=== PATIENT | female | born 1985 | race Caucasian/White ===

== ENCOUNTER 2020-04-14 16:55 | Outpatient (REF) | payer OTHER, SELFPAY ==
[2020-04-14 17:47] LABS: Basophils Percent Auto 0.3 % (0-2); Eosinophils Absolute Auto 0.2 X10*3/uL (0.0-0.4); Eosinophils Percent Auto 1.8 % (0-4); Hematocrit 40.9 % (37-47); Hemoglobin 13.3 g/dl (12.0-16.0); Imm Gran Abs Auto 0.05 X10*3/uL (0.00-0.03); Imm Gran Pct Auto 0.6 % (0.0-0.4); Lymphocytes Absolute Auto 1.9 X10*3/uL (1.2-4.9); Lymphocytes Percent Auto 20.8 % (20-40); MANUAL DIFF FLAG NO; Mean Corpuscular HGB Conc 32.5 g/dl (31.0-35.0); Mean Corpuscular Hemoglobin 30.8 pg (27.0-33.0); Mean Corpuscular Volume 94.7 fL (80-98); Mean Platelet Volume 9.6 fL (9.4-12.3); Monocytes Absolute Auto 0.7 X10*3/uL (0.1-1.2); Monocytes Percent Auto 7.6 % (2-11); Neutrophils Absolute Auto 6.3 X10*3/uL (2.0-8.3); Neutrophils Percent Auto 68.9 % (45-73); Platelet Count 355 X10*3/uL (160-400); Red Blood Count 4.32 X10*6/uL (4.20-5.50); Red Cell Distribution Width 11.2 % (11.0-16.0); White Blood Count 9.1 X10*3/uL (4.8-10.8)
[2020-04-14 18:15] LABS: Alanine Aminotransferase 17 U/L (0-31); Albumin Level 4.6 g/dL (3.5-5.0); Alkaline Phosphatase 70 U/L (39-117); Anion Gap 10 (12-20); Aspartate Amino Transferase 18 U/L (5-31); Bilirubin Total 0.8 mg/dL (0.0-1.0); Blood Urea Nitrogen 10 mg/dL (9-16); Calcium 9.6 mg/dL (8.4-10.2); Carbon Dioxide 31 mmol/L (22-29); Chloride 101 mmol/L (96-108); Cholesterol 192 mg/dL; Estimated Glomerular Filt Rate > 60; Glucose Random 85 mg/dL (60-115); Potassium 4.3 mmol/l (3.3-5.1); Sodium 138 mmol/L (135-145); Total Protein 7.7 g/dL (6.5-8.0)
[2020-04-14 18:35] LABS: Free T4 (Free Thyroxine) 0.89 ng/dL (0.71-1.85)
== END 2020-04-14 16:56 | disposition home or self-care (01) ==
LOC: HO.LAB 16:55
PROVIDERS: PCP Internal Medicine; Visit Provider Internal Medicine
DX: J30.1 Allergic rhinitis due to pollen (principal); Z83.42 Family history of familial hypercholesterolemia; Z83.3 Family history of diabetes mellitus
CPT/HCPCS: 36415; 80053; 82465; 84439; 85025

== ENCOUNTER 2020-09-26 14:24 | Outpatient (REF) | payer SELFPAY ==
[2020-09-27 08:52] LABS: Rubella IgG Antibody 7.23 Index; Rubeola IgG (Measles) <13.50 AU/mL
[2020-09-29 09:10] LABS: HBS Num2 8.37 mIU/mL (0-7.99); ~Hepatitis B Surface Antibody GRAYZONE (Nonreactive)
[2020-09-29 12:42] LABS: TS Negative Control Passed; TS Panel A 0; TS Panel B 0; TS Positive Control Passed; TSpotTB Negative (SeeBelow)
== END 2020-09-26 14:25 | disposition home or self-care (01) ==
LOC: HO.LAB 14:24
PROVIDERS: PCP Internal Medicine; Visit Provider Internal Medicine
DX: Z02.0 Encounter for examination for admission to educational institution (principal)
CPT/HCPCS: 36415; 86481; 86706; 86735; 86762; 86765; 86787

== ENCOUNTER 2020-10-20 12:20 | Outpatient (REF) | payer SELFPAY | END 2020-10-20 12:21 | disposition home or self-care (01) | LOC: HO.LAB 12:20 | PROVIDERS: PCP Internal Medicine; Visit Provider Internal Medicine | DX: Z02.0 Encounter for examination for admission to educational institution (principal) | CPT/HCPCS: 36415; 86765 ==

== ENCOUNTER 2021-04-29 09:33 | Outpatient (REF) | payer OTHER, SELFPAY ==
[2021-04-29 11:07] LABS: HBS Num1 > 1000.00 mIU/mL (0-7.99); ~Hepatitis B Surface Antibody REACTIVE (Nonreactive)
== END 2021-04-29 09:34 | disposition home or self-care (01) ==
LOC: HO.LAB 09:33
PROVIDERS: PCP Internal Medicine; Visit Provider Internal Medicine
DX: Z01.84 Encounter for antibody response examination (principal)
CPT/HCPCS: 36415; 86706

== ENCOUNTER 2021-09-09 10:31 | Outpatient (REF) | payer OTHER, SELFPAY ==
[2021-09-09 10:45] LABS: MANUAL DIFF FLAG NO
[2021-09-09 11:43] LABS: Basophils Percent Auto 0.4 % (0-2); Eosinophils Absolute Auto 0.2 X10*3/uL (0.0-0.4); Eosinophils Percent Auto 1.8 % (0-4); Hematocrit 39.6 % (37.0-47.0); Hemoglobin 12.8 g/dl (12.0-16.0); Imm Gran Abs Auto 0.09 X10*3/uL (0.00-0.03); Imm Gran Pct Auto 0.9 % (0.0-0.4); Lymphocytes Absolute Auto 2.2 X10*3/uL (1.2-4.9); Mean Corpuscular HGB Conc 32.3 g/dl (31.0-35.0); Mean Corpuscular Hemoglobin 30.5 pg (27.0-33.0); Mean Corpuscular Volume 94.5 fL (80.0-98.0); Monocytes Absolute Auto 0.6 X10*3/uL (0.1-1.2); Monocytes Percent Auto 5.9 % (2-11); Neutrophils Absolute Auto 6.7 x10*3/uL (2.0-8.3); Platelet Count 299 X10*3/uL (160-400); Red Blood Count 4.19 X10*6/uL (4.20-5.50); Red Cell Distribution Width 11.9 % (11.0-16.0); White Blood Count 9.8 X10*3/uL (4.8-10.8)
[2021-09-09 12:17] LABS: Anion Gap 10 (12-20); Blood Urea Nitrogen 11 mg/dL (9-16); Calcium 10.1 mg/dL (8.4-10.2); Carbon Dioxide 26 mmol/L (22-29); Chloride 106 mmol/L (96-108); Estimated Glomerular Filt Rate > 60; Glucose Random 85 mg/dL (60-115); Potassium 4.4 mmol/L (3.3-5.1); Sodium 138 mmol/L (135-145)
[2021-09-12 01:52] LABS: TS Negative Control Passed; TS Panel A 0; TS Panel B 0; TS Positive Control Passed; TSpotTB Negative (Negative)
== END 2021-09-09 10:32 | disposition home or self-care (01) ==
LOC: HO.LAB 10:31
PROVIDERS: PCP Internal Medicine; Visit Provider Internal Medicine
DX: Z02.0 Encounter for examination for admission to educational institution (principal)
CPT/HCPCS: 36415; 80048; 85025; 86481

== ENCOUNTER 2021-11-18 10:21 | Outpatient (REF) | payer OTHER, SELFPAY ==
--- NOTE | ~2021-11-18 | XR_ITS ---
EXAMINATION: XR CHEST CLINICAL INFORMATION: Left shoulder pressure COMPARISON: None TECHNIQUE: 2 views of the chest were obtained. FINDINGS: The mediastinum, eunice, vasculature, lungs and visualized pleural margins are within normal limits. No suspicious focal bony lesion. XR/XR chest 2V IMPRESSION: No acute chest disease.
[2021-11-18 13:40] LABS: MANUAL DIFF FLAG NO
[2021-11-18 13:45] LABS: Basophils Percent Auto 0.5 % (0-2); Eosinophils Absolute Auto 0.1 X10*3/uL (0.0-0.4); Eosinophils Percent Auto 1.4 % (0-4); Hematocrit 40.2 % (37.0-47.0); Hemoglobin 13.2 g/dl (12.0-16.0); Imm Gran Abs Auto 0.14 X10*3/uL (0.00-0.03); Imm Gran Pct Auto 1.6 % (0.0-0.4); Lymphocytes Percent Auto 23.1 % (20-40); Mean Corpuscular HGB Conc 32.8 g/dl (31.0-35.0); Mean Corpuscular Hemoglobin 30.7 pg (27.0-33.0); Mean Corpuscular Volume 93.5 fL (80.0-98.0); Mean Platelet Volume 10.1 fL (9.4-12.3); Monocytes Absolute Auto 0.6 X10*3/uL (0.1-1.2); Monocytes Percent Auto 6.8 % (2-11); Neutrophils Absolute Auto 5.7 x10*3/uL (2.0-8.3); Neutrophils Percent Auto 66.6 % (45-73); Platelet Count 308 X10*3/uL (160-400); White Blood Count 8.6 X10*3/uL (4.8-10.8)
[2021-11-18 14:27] LABS: Anion Gap 15 (12-20); Blood Urea Nitrogen 10 mg/dL (9-16); Calcium 9.7 mg/dL (8.4-10.2); Carbon Dioxide 27 mmol/L (22-29); Chloride 102 mmol/L (96-108); Estimated Glomerular Filt Rate > 60; Glucose Random 89 mg/dL (60-115); Potassium 4.6 mmol/L (3.3-5.1); Sodium 139 mmol/L (135-145)
== END 2021-11-18 10:22 | disposition home or self-care (01) ==
LOC: HO.10HDL 10:21
PROVIDERS: Visit Provider Internal Medicine
DX: M25.512 Pain in left shoulder (principal); R07.89 Other chest pain
CPT/HCPCS: 36415; 71046; 80048; 82550; 85025; 86140

== ENCOUNTER → 2021-12-24 12:48 | Outpatient (REF) | payer OTHER, SELFPAY ==
--- NOTE | 2021-12-24 13:00 | CA_ITS ---
Transthoracic Echocardiogram Patient (Last, First, Middle): Juana Lantigua, Gender: Female Date of : 1985 Age: 36 Procedure Date: 12/24/2021 Procedure Type: Transthoracic Echocardiogram Location: OP Height: 160.02 cm Weight: 70.31 kg BSA: 1.74 m2 Heart Rate: bpm BP: 100 / 78 mmHg Service Manager: TO Referring MD: Brian Sadler MD Development Mechanic: Braden Lacy MD Symptoms: I45.10 Study Quality: Fair ECG Rhythm: Sinus Conclusions: - Essentially normal study Findings Left Ventricle Normal left ventricular size, thickness, and systolic function. The visually estimated ejection fraction is between 55-60%. Spectral Doppler is indicative of a normal filling pattern. Right Ventricle Normal right ventricular cavity size and systolic function. Atria Both atria are normal in size. There is no evidence of interatrial shunt. Aortic Valve Normal aortic valve structure and function. There is no aortic valve stenosis. There is no aortic valve regurgitation. Mitral Valve Normal mitral valve structure and function. There is trace mitral valve regurgitation. There is no mitral valve stenosis. Pulmonic Valve The pulmonic valve is likely normal. Tricuspid Valve Normal tricuspid valve structure. There is trace tricuspid valve regurgitation. The right ventricular systolic pressure is normal. The right ventricular systolic pressure is 13 mmHg. Normal right atrial pressure. There is no evidence of pulmonary hypertension. Great Vessels All visible segments of the aorta are normal in size. The pulmonary artery was not well visualized. Venous The inferior vena cava is normal in size and collapses greater than 50% with inspiration. Pericardium/Pleural There is no evidence of pericardial effusion. Prior Study Comparison No prior study available for comparison. Measurements 2D Linear Measurements IVSd: 0.55 0.6-0.9/0.6-1.0 cm LVIDd: 4.36 3.9-5.3/4.2-5.9 cm LVIDd Index: 2.51 2.4-3.2/2.2-3.1 cm/m2 LVIDs: 2.83 2.0-3.6 cm LVPWd: 0.53 0.7-1.1 cm LA Diam: 2.10 2.7-3.8/3.0-4.0 cm LAIDs Index: 1.21 1.5-2.3 cm/m2 LV Mass: 81.32 67-162/88-224 g LV Mass Index: 46.74 43-95/49-115 g/m2 LVOT Diam: 2.10 3.0+(-)1.3 cm 2D Systolic Function EF 4C: 55.90 >55% EF 2C: 57.20 >55% EF BiP: 56.50 >55% Mitral Valve MV Pk E: 0.44 MV PK A: 0.37 MV Decel Time: 255.00 E/A: 1.20 E'Lateral: 13.10 E'Medial: 9.36 E/E' Med: 4.70 E/E' Lat: 3.30 PHT: 75.00 MVA PHT: 2.93 Decel [place]: 1.71 Aortic Valve AoV Pk Serg: 1.22 AoV Mn Serg: 0.83 AoV VTI: 0.25 AoV Pk Grad: 6.00 Aov Mn Grad: 3.00 VALERIE Cont.VTI: 2.57 LVOT LVOT Pk Serg: 0.89 LVOT Mn Serg: 0.56 LVOT VTI: 0.18 LVOT Pk Grad: 3.00 LVOT Mn Grad: 1.00 LVOT Diam: 2.10 LVOT Area: 3.46 Diastolic Function MV Pk E: 0.44 MV Pk A: 0.37 E/A: 1.20 E'Medial: 9.36 E/E' Med: 4.70 E' Laterial: 13.10 E/E' Lat: 3.30 Right Ventricle TAPSE (mm): 17.10 TVS' Serg: 10.90 Tricuspid Valve TR Pk Serg: 1.56 TR Pk Grad: 10.00 RA Press: 3.00 RVSP: 13.00 Great Vessels Aorta Sinus of Valsalva: 2.69 2.0-3.5 cm Ao Asc: 2.60 2.1-3.4 cm Updated in Other Vendor System with Status of Final Braden Lacy MD electronically signed on 12/25/2021 11:55:14 AM with status of Final
== END ==
LOC: HO.CARD 12:48
PROVIDERS: PCP Internal Medicine; Visit Provider Internal Medicine
DX: I45.10 Unspecified right bundle-branch block (principal)
CPT/HCPCS: 93306

== ENCOUNTER 2023-07-26 12:05 | Outpatient (REF) | payer OTHER, SELFPAY ==
[2023-07-26 13:34] LABS: MANUAL DIFF FLAG NO
[2023-07-26 13:58] LABS: Basophils Percent Auto 0.4 % (0-2); Eosinophils Absolute Auto 0.1 X10*3/uL (0.0-0.4); Eosinophils Percent Auto 2.6 % (0-4); Hematocrit 40.7 % (37.0-47.0); Hemoglobin 13.4 g/dl (12.0-16.0); Imm Gran Abs Auto 0.01 X10*3/uL (0.00-0.03); Imm Gran Pct Auto 0.2 % (0.0-0.4); Lymphocytes Absolute Auto 1.8 X10*3/uL (1.2-4.9); Lymphocytes Percent Auto 39.2 % (20-40); Mean Corpuscular HGB Conc 32.9 g/dl (31.0-35.0); Mean Corpuscular Hemoglobin 31.1 pg (27.0-33.0); Mean Corpuscular Volume 94.4 fL (80.0-98.0); Mean Platelet Volume 10.1 fL (9.4-12.3); Monocytes Absolute Auto 0.5 X10*3/uL (0.1-1.2); Monocytes Percent Auto 10.4 % (2-11); Neutrophils Absolute Auto 2.2 x10*3/uL (2.0-8.3); Neutrophils Percent Auto 47.2 % (45-73); Platelet Count 206 X10*3/uL (160-400); Red Blood Count 4.31 X10*6/uL (4.20-5.50); Red Cell Distribution Width 11.8 % (11.0-16.0); White Blood Count 4.6 X10*3/uL (4.8-10.8)
[2023-07-26 16:34] LABS: Alanine Aminotransferase 17 U/L (0-31); Albumin Level 4.4 g/dL (3.5-5.0); Alkaline Phosphatase 52 U/L (39-117); Anion Gap 10 (12-20); Aspartate Amino Transferase 22 U/L (5-31); Bilirubin Total 0.3 mg/dL (0.0-1.0); Blood Urea Nitrogen 8 mg/dL (9-16); C Reactive Protein 0.49 mg/dL (< or = 0.50); Calcium 9.3 mg/dL (8.4-10.2); Carbon Dioxide 28 mmol/L (22-29); Chloride 106 mmol/L (96-108); Estimated Glomerular Filt Rate > 60; Glucose Random 84 mg/dL (60-115); Sodium 140 mmol/L (135-145); Total Protein 7.4 g/dL (6.5-8.0)
[2023-07-26 16:53] LABS: Free T4 (Free Thyroxine) 1.03 ng/dL (0.71-1.85)
[2023-07-27 11:18] LABS: Thyroid Peroxidase Antibodies 121 IU/mL (<9)
== END 2023-07-26 12:06 | disposition home or self-care (01) ==
LOC: HO.10HDL 12:05
PROVIDERS: Visit Provider Internal Medicine
DX: E03.9 Hypothyroidism, unspecified (principal); R63.4 Abnormal weight loss; H57.10 Ocular pain, unspecified eye
CPT/HCPCS: 36415; 80053; 82550; 84439; 84443; 85025; 86140; 86376

== ENCOUNTER 2023-07-28 17:31 | Emergency (ER) | payer OTHER, SELFPAY ==
--- NOTE | ~2023-07-28 | CT_ITS ---
EXAMINATION: CT HEAD WITHOUT CONTRAST CLINICAL INFORMATION: Headache and blurred vision. COMPARISON: None. TECHNIQUE: Contiguous axial imaging was performed from the skullbase to vertex without intravenous administration of contrast. This CT examination was performed using dose optimization techniques as appropriate, variously including the following: *Automated exposure control *Adjustment of mA and/or kV according to patient size (this includes techniques or standardized protocols for targeted exams where dose is matched to indication/reason for exam; i.e. extremities or head) *Use of iterative reconstruction technique DLP: 620 mGy-cm. FINDINGS: There is no evidence of acute intracranial hemorrhage or territorial infarction. No abnormal mass effect or midline shift is seen. Gonzalez to white matter differentiation is well preserved. No extra-axial fluid collections are identified. The ventricles are normal in size. There is no abnormal attenuation within the brain parenchyma. The osseous structures and soft tissues are normal. The mastoid air cells and visualized portions of the paranasal sinuses are well aerated. CT/CT head/brain wo IV con IMPRESSION: No acute intracranial pathology.
--- NOTE | 2023-07-28 17:58 | ED_ITS ---
<Statement entered by Mickey Quesada MD - 07/29/23 02:33> The patient was given tetracaine topically with improvement in her discomfort. I performed a slit-lamp exam that showed some diffuse mild conjunctival injection without definite perilimbal blushing. I thought there might be some slight corneal irregularities. No flashes or floaters in the anterior chamber. Fluorescein staining revealed diffuse punctate uptake of dye on the cornea. Given the appearance of the cornea I think she has some degree of keratitis and will be started on ofloxacin drops and should follow up with Ophthalmology promptly. She has been a contact lens wear but has not worn contact lenses for about 4 weeks. HPI - General Adult General Chief complaint: Recheck/Abnormal Lab/Rx Stated complaint: sent by pcp due to lab results Time Seen by Provider: 07/28/23 22:54 Source: patient, RN notes reviewed and old records reviewed Mode of arrival: ambulatory Limitations: no limitations History of Present Illness HPI narrative: 38-year-old female presents for evaluation of ?light sensitivity. Patient reports that she has had ongoing symptoms for the last 6 days She states that initially her eyes were red but that is no longer the case She states that she has been so sensitive to light that she has been sitting in the dark and taking ibuprofen and Tylenol for headaches She went to her primary doctor 4 days ago for the same complaint She had labs done and was told ?the thyroid peroxidase was elevated and I do not know what that means. ? Patient wears glasses. She goes to [facility] for optometry but has not seen an tree specialist in urine She does not take any medications Related Data Previous Rx's ?Medication ?Instructions ?Recorded ofloxacin 0.3 % eye drops See Rx Instructions ophthalmic 07/29/23 (eye) .COMPLEX #10 mL Allergies Allergy/AdvReac Type Severity Reaction Status Date / Time No Known Allergies Allergy Verified 07/28/23 18:01 Review of Systems 2 Constitutional: Constitutional: Denies body ache(s), Denies chills, Denies fever(s) and Reports headache(s) Eyes: Eyes: Reports photophobia ENT: Reports headache(s) Cardiovascular: Cardiovascular: Denies chest pain and Denies dyspnea Respiratory: Respiratory: Denies cough and Denies dyspnea Gastrointestinal: Gastrointestinal: Denies abdominal pain, Denies nausea and Denies vomiting Musculoskeletal: Musculoskeletal: Denies back pain Integumentary/Breasts: Skin/Breast: Denies rash Neurologic: Reports headache(s) Psychiatric: Psychiatric: Denies panic attacks PMFSH Social History Social History Advance Directives: No Advance Directives Information Provided: No Physical Exam ED Vital Signs: Vital Signs - 24 hr 07/28/23 17:59 07/28/23 21:52 Temperature 98.1 F 98.3 F Pulse Rate 66 56 Respiratory Rate 18 20 Blood Pressure 136/91 H 125/64 Pulse Oximetry 98 99 Oxygen Delivery Method Room Air Room Air BMI result Body Mass Index 19.1 Const General: healthy appearing, alert and awake Nutritional Appearance: well nourished Orientation/consciousness: patient oriented x3 HENMT Head: Yes normocephalic and Yes atraumatic Eyes Eyelids: Yes eyelids normal Conjunctivae: conjunctivae normal Pupils: Equal, round and reactive pupils present EOM: EOMs intact bilaterally Direct Ophthalmoscopy: photophobia Resp Effort & Inspection: normal respiratory effort, able to speak in complete sentences and not labored Skin General skin exam: elasticity normal Neuro General: patient oriented x3 Cranial nerves: Yes CN's II-XII intact bilaterally, Yes Equal, round and reactive pupils present and Yes Bilaterally intact EOM present Cognition (Neuro): normal cognition Extrem Other: Moving all extremities well without any obvious deformities Course Course Course Narrative: This is an RME: Additional HPI, ROS, PE not included below will be deferred to primary provider. 38 yo f presents after PCP sent for elevated thyroid peroxidase levels. Reports nausea, decreased appetite, coughing, chills, intermittent dizziness. Denies fever. Weight loss of 30 pounds in 2 months. Reevaluation(s) Reevaluation #1: Fluorescein stain was performed with my attending, Dr. Quesada which shows diffuse punctate fluorescein uptake concerning for keratitis. The patient reports that she does occasionally wear contacts but has not worn them for over a month. She will be prescribed ofloxacin eyedrops Time: 00:13 Medical Decision Making Medical Decision Making MDM Narrative: [age] old female presents for evaluation of photophobia. Her symptoms have been ongoing for approximately 6 days. She is associated headache. She does CT scan ordered in triage that did not show any concerning abnormalities. Patient had outpatient thyroid peroxidase elevated, however her TSH and T4 were within normal limits. Funduscopic exam is quite difficult as the patient is very sensitive to light. , she has no conjunctival or scleral injection, no obvious signs of trauma. 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 The patient will be referred to Ophthalmology, Dr. Bravo Differential Diagnosis Differential Diagnoses: The differential diagnosis associated with the presentation includes Acute angle closure glaucoma less likely due to bilateral symptoms. Corneal abrasion less likely due to bilateral symptoms Uveitis Iritis Acute headache Lab Data MDM Lab Attestation statement: I reviewed the patient's lab results. No leukocytosis or anemia. Normal platelet count. No significant electrolyte abnormalities 07/28/23 18:15 07/28/23 18:15 Labs: Lab Results 07/28/23 Range/Units 18:15 WBC 6.3 (4.8-10.8) X10*3/uL RBC 4.26 (4.20-5.50) X10*6/uL Hgb 13.2 (12.0-16.0) g/dl Hct 40.0 (37.0-47.0) % MCV 93.9 (80.0-98.0) fL MCH 31.0 (27.0-33.0) pg MCHC 33.0 (31.0-35.0) g/dl RDW 11.6 (11.0-16.0) % Plt Count 236 (160-400) X10*3/uL MPV 9.8 (9.4-12.3) fL Immature Gran % (Auto) 0.6 H (0.0-0.4) % Neut % (Auto) 51.7 (45-73) % Lymph % (Auto) 38.8 (20-40) % [place] % (Auto) 6.2 (2-11) % Eos % (Auto) 2.4 (0-4) % Baso % (Auto) 0.3 (0-2) % Lymph # (Auto) 2.4 (1.2-4.9) X10*3/uL [place] # (Auto) 0.4 (0.1-1.2) X10*3/uL Eos # (Auto) 0.2 (0.0-0.4) X10*3/uL Baso # (Auto) 0.0 (0.0-0.2) X10*3/uL Abs Immat Gran (auto) 0.04 H (0.00-0.03) X10*3/uL Absolute Neuts (auto) 3.3 (2.0-8.3) x10*3/uL Absolute Nucleated RBC 0.000 (0.0-0.012) X10*3/uL Nucleated RBC % (auto) 0.0 (0.0-0.2) /100WBC Sodium 142 (135-145) mmol/L Potassium 4.1 (3.3-5.1) mmol/L Chloride 109 H (96-108) mmol/L Carbon Dioxide 26 (22-29) mmol/L Anion Gap 11 L (12-20) BUN 9 (9-16) mg/dL Creatinine 0.70 (0.5-1.4) mg/dL Estim Creat Clear Calc 85.1 Estimated GFR > 60 Random Glucose 103 (60-115) mg/dL Calcium 9.2 (8.4-10.2) mg/dL Total Bilirubin 0.4 (0.0-1.0) mg/dL AST 21 (5-31) U/L ALT 15 (0-31) U/L Alkaline Phosphatase 51 (39-117) U/L Total Protein 7.6 (6.5-8.0) g/dL Albumin 4.2 (3.5-5.0) g/dL TSH 1.79 (0.32-4.0) uIU/mL Discharge Plan Discharge Clinical Impression: Photophobia, Keratitis Patient Disposition: Home, Self-Care Instructions: Photophobia (ED) Additional Instructions: I recommend that you follow-up with ophthalmology by calling the number provided tomorrow morning. In the meantime I recommend you use the antibiotic drops as prescribed Return for new or worsening symptoms Prescriptions: New ofloxacin 0.3 % drops See Rx Instructions .ROUTE .COMPLEX Qty: 10 0RF Rx Instructions: put 2 drps into affected eye(s) every 2 h x 2 days, then 2 drps q4h on days 3-7 Referrals: Andrews Bravo [Physician] - (? uveitis severe photophobia bilaterally) Stand Alone Forms: Work/School Release Print Language: Danish
[2023-07-28 17:59] VITALS: BP 136/91; PULSE 66; RESP 18; TEMP 36.7; O2SAT 98; BMI 19.1
--- OUTSIDE RECORDS SUMMARY | 2023-07-28 18:14 | XMS_ITS | Continuity of Care Document ---
Author Organization [facility] Address Unknown Care Team Providers Care Cad Cam Programmer Name Role Phone Not on Staff, PCP Primary Care Physician Unavail able [facility]counter [facility] Date(s): 09/02/21 - 10/02/21 [facility] Attending Physician: Yohan Rose Admitting Physician: Yohan Rose Referring Physician: Yohan Rose Allergies, Adverse Reactions, Alerts Substance Reaction Severity Status Other Food Allergy 1 throat itching itch Active 1Reaction to eating peel/skins of fruits: apples, pears, other fruit with skin Immunizations Given and Recorded Vaccine Date Status Refusal Reason SARS-CoV-2 mRNA ([id number]) vax 09/02/21 Given SARS-CoV-2 (COVID-19) mRNA BNT-162b2 vac 08/14/20 Given SARS-CoV-2 (COVID-19) mRNA BNT-162b2 vac 07/24/20 Given tetanus/diphtheria/pertussis, acel(Tdap) 01/28/17 Given influenza virus vaccine, inactivated 01/28/17 Give n influenza virus vaccine, inactivated 1 03/02/10 Gi viviane influenza virus vaccine, inactivated 2 02/14/07 Gi viviane Human Papillomavirus Vaccine 3 03/02/10 Given Tet/Diphth/Acel, Pertussis (oldterm) 4 06/27/08 Gi viviane 1Admin Note: VIS 11/18/09 2Admin Note: VIS GIVEN 3Admin Note: vis 09/14 4Admin Note: VIS GIVEN Medications Handheld Electric Breast Pump See Instructions, # 1 units, Maintenance, See instructions., 04/17/17 6:00:45, Compound Start Date: 04/17/17 Status: Ordered Problem List Condition Effective Dates Status Health Status Inform ant Anxiety(Confirmed) Active Marijuana use(Confirmed) Active Social History Social History Type Response Smoking Status 5-9 cigarettes (betw een 1/4 to 1/2 pack)/day in last 30 days entered on: 08/02/18 Sex
--- OUTSIDE RECORDS SUMMARY | 2023-07-28 18:15 | XMS_ITS | Continuity of Care Document ---
Author Organization [facility] Address [address] [place] [address]- Care Team Providers Care Conveyor Mechanic Name Role Phone Not on Staff, PCP Primary Care Physician Unavail able [facility]counter [facility] Date(s): 10/04/19 - 11/03/19 [facility] [address] [place] [address]- [facility] Attending Physician: Yohan Rose Admitting Physician: Yohan Rose Referring Physician: Yohan Rose Allergies, Adverse Reactions, Alerts Substance Reaction Severity Status Other Food Allergy 1 throat itching itch Active 1Reaction to eating peel/skins of fruits: apples, pears, other fruit with skin Immunizations Given and Recorded Vaccine Date Status Refusal Reason tetanus/diphtheria/pertussis, acel(Tdap) 01/28/17 Given influenza virus vaccine, [...] Effective Dates Status Health Status Inform ant Anemia of (Confirmed) Active Anxiety(Confirmed) Active Marijuana use(Confirmed) Active Social History Social History Type Response Smoking Status 5-9 cigarettes (betw een 1/4 to 1/2 pack)/day in last 30 days entered on: 08/02/18 Sex
--- OUTSIDE RECORDS SUMMARY | 2023-07-28 18:15 | XMS_ITS | Continuity of Care Document ---
Author Organization [facility] Address [address] [place] [address]- Care Team Providers Care Night Monitor Name Role Phone Not on Staff, PCP Primary Care Physician Unavail able Encounter [facility] Date(s): 10/15/20 - 11/14/[address] [address]- Allergies, Adverse Reactions, Alerts Substance Reaction Severity Status Other Food Allergy 1 throat itching itch Active 1Reaction to eating peel/skins of fruits: apples, pears, other fruit with skin Immunizations Given and Recorded Vaccine Date Status Refusal Reason SARS-CoV-2 (COVID-19) mRNA BNT-162b2 vac 08/14/20 Given [...] History Type Response Smoking Status 5-9 cigarettes (yadi pearson 1/4 to 1/2 pack)/day in last 30 days entered on: 08/02/18 Sex
--- OUTSIDE RECORDS SUMMARY | 2023-07-28 18:15 | XMS_ITS | Continuity of Care Document ---
Author Organization [facility] Address [address], [address] [place] [address]- Care Team Providers Care Trimming Assembler Name Role Phone Not on Staff, PCP Primary Care Physician Unavail able Encounter [facility] Date(s): 06/07/23 - 06/14/23 [facility] [address], [address] [place] [address]- Attending Physician: Not on Staff, Attending MD Referring Physician: Julian Samuel Allergies, Adverse Reactions, Alerts Substance Reaction Severity Status Other Food Allergy 1 throat itching itch Active 1Reaction to eating peel/skins of fruits: apples, pears, other fruit with skin Immunizations Given and Recorded Vaccine Date Status Refusal Reason SARS-CoV-2 mRNA ([id number]) vax 09/02/21 Given SARS-CoV-2 (COVID-19) mRNA BNT-162b2 [...] 6:00:45, Compound Start Date: 04/17/17 Status: Ordered hydrocortisone 2.5% topical cream 1 application, Topically, 2 times a day, for 10 days, # 30 Gm, 0 Refills, Acute 06/18/23 14:18:00 EST, 06/08/23 14:18:00 EST, Cream, [id number], Partial fill upon patient request if the prescription is for a schedule II opioid drug., 1 applica... Start Date: 06/08/23 Stop Date: 06/18/23 Status: Ordered Problem List Condition Confirmation Course Effective Dates Status Health St atus Informant Anemia of Confirmed Active Anxiety Confirmed Active Vital Signs Most recent to oldest [Reference Range]: 1 Height 160 cm (06/07/23 12:25 PM) Weight 53.1 kg (06/07/23 12:25 PM) Pulse Rate [55-90 bpm] 63 bpm (06/07/23 12:25 PM) Body Mass Index [18.5-24.99 kg/m2] 20.74 kg/m2 (06/07/23 12:25 PM) Blood Pressure [90-138/55-84 mm Hg] 128/ 65mm Hg (06/07/23 12:25 PM) Blood pressure sites Arm, right (06/07/23 12:25 PM) Dry Weight 53.1 kg (06/07/23 12:25 PM) Weight Obtained Via Standing scale (06/07/23 12:25 PM) Dry Weight Obtained Via Standing scale (06/07/23 12:25 PM) Social History Social History Type Response Smoking Status Former smoker, quit more than 30 days ago entered on: 06/08/23 Sex Patient Care team information Care Team Personnel Name: Not on Staff, PCP Position: S Physician (General Medicine) Member Role: PCP Care Team Related Persons Name: ELIZABETH MCELROY Address: [address] [place] [address]
--- OUTSIDE RECORDS SUMMARY | 2023-07-28 18:15 | XMS_ITS | Continuity of Care Document ---
Author Organization [facility] Address [address] [place] [address]- Care Team Providers Care Manager Process Improvement Name Role Phone Not on Staff, PCP Primary Care Physician Unavail able [facility]counter [facility] Date(s): 10/04/19 - 10/11/19 [facility] [address] [place] [address]- [facility] Encounter Diagnosis Neck swelling(Discharge Diagnosis) - 10/04/19 Attending Physician: Tucker HOLLIS, Ant Acosta Allergies, Adverse Reactions, Alerts Substance Reaction Severity [...] (Confirmed) Active Anxiety(Confirmed) Active Marijuana use(Confirmed) Active Diagnosis Diagnosis Type Effective Dates Health Status Cl inical Service Informant Neck swelling Discharge Diagnosis 10/04/19 Vital Signs Most recent to oldest [Reference Range]: 1 Height 163 cm (10/04/19 4:31 PM) Weight 53.7 kg (10/04/19 4:31 PM) Oxygen Saturation [94-100 %] 100 % (10/04/19 4:31 PM) Pulse Rate [55-90 bpm] 94 bpm *H* (10/04/19 4:31 PM) Body Mass Index [18.5-24.99] 20.21 (10/04/19 4:31 PM) Blood Pressure [90-138/55-84 mm Hg] 105/ 72mm Hg (10/04/19 4:31 PM) Respiratory Rate [16-30 br/min] 18 br/mi n (10/04/19 4:31 PM) Temperature [96.8-100.4 DegF] 97.2 DegF (10/04/19 4:31 PM) Mode of Delivery (Oxygen) Room air (10/04/19 4:31 PM) Blood pressure sites Arm, right (10/04/19 4:31 PM) Temperature Route Temporal (10/04/19 4:31 PM) Dry Weight 53.7 kg (10/04/19 4:31 PM) Weight Obtained Via Standing scale (10/04/19 4:31 PM) Dry Weight Obtained Via Standing scale (10/04/19 4:31 PM) Social History Social History Type Response Smoking Status 5-9 cigarettes (betw een 1/4 to 1/2 pack)/day in last 30 days entered on: 08/02/18 Sex
--- OUTSIDE RECORDS SUMMARY | 2023-07-28 18:15 | XMS_ITS | Continuity of Care Document ---
Author Organization [facility] Address [address], [address] [place] [address]- Care Team Providers Care Coal Hiker Name Role Phone Not on Staff, PCP Primary Care Physician Unavail able Encounter [facility] Date(s): 06/07/23 - 07/07/23 [facility] [address], [address] [place] [address]- Attending Physician: Yohan Rose Admitting Physician: AdmYohan marshall Referring Physician: AdmtrYohan Allergies, Adverse Reactions, Alerts Substance Reaction Severity Status Other Food Allergy 1 throat itching itch Active 1Reaction to eating peel/skins of fruits: apples, pears, other fruit with skin Immunizations Given and Recorded Vaccine Date Status Refusal Reason SARS-CoV-2 mRNA ([id number]) vax 09/02/21 Given SARS-CoV-2 (COVID-19) mRNA BNT-162b2 [...] Date: 04/17/17 Status: Ordered Problem List Condition Confirmation Course Effective Dates Status Health St atus Informant Anemia of Confirmed Active Anxiety Confirmed Active Social History Social History Type Response Smoking Status Former smoker, quit more than 30 days ago entered on: 06/08/23 Sex Patient Care team information Care Team Personnel Name: Not on Staff, PCP Position: S Physician (General Medicine) Member Role: PCP Care Team Related Persons Name: RAINA MCELROYA Address: home [address] [place] [id number]
--- OUTSIDE RECORDS SUMMARY | 2023-07-28 18:15 | XMS_ITS | Continuity of Care Document ---
Author Organization [facility] Address [address] [place] [address]- Care Team Providers Care Emergency Care Tech Name Role Phone Not on Staff, PCP Primary Care Physician Unavail able Encounter [facility] Date(s): 08/14/20 - 09/13/20 [facility] [address] [place] [address]- Attending Physician: Yohan Rose Admitting Physician: Yohan Rose Referring Physician: AdmtrYohan Allergies, Adverse Reactions, Alerts [...]
--- OUTSIDE RECORDS SUMMARY | 2023-07-28 18:15 | XMS_ITS | Continuity of Care Document ---
Author Organization [facility] Address [address] [place] [address]- Care Team Providers Care Health Promoter Name Role Phone Not on Staff, PCP Primary Care Physician Unavail able Encounter [facility] Date(s): 09/22/21 - 10/22/[address] [address]- Attending Physician: Yohan Rose Admitting Physician: Yohan Rose Referring Physician: AdmtrYohan Allergies, Adverse Reactions, Alerts Substance Reaction Severity Status Other Food Allergy 1 throat itching itch Active 1Reaction to eating peel/skins of fruits: apples, pears, other fruit with skin Immunizations Given and Recorded Vaccine Date Status Refusal Reason SARS-CoV-2 mRNA ([id number]) vax 09/02/21 Given SARS-CoV-2 (COVID-19) mRNA BNT-162b2 [...]
--- OUTSIDE RECORDS SUMMARY | 2023-07-28 18:15 | XMS_ITS | Continuity of Care Document ---
Author Organization [facility] Address [address] [place] [address]- Care Team Providers Care Anthropometrist Name Role Phone Not on Staff, PCP Primary Care Physician Unavail able Encounter [facility] Date(s): 10/08/20 - 11/07/[address] [address]- Attending Physician: Yohan Rose Admitting Physician: Yohan [...]
[2023-07-28 18:19] LABS: MANUAL DIFF FLAG NO
[2023-07-28 18:37] LABS: Basophils Percent Auto 0.3 % (0-2); Eosinophils Absolute Auto 0.2 X10*3/uL (0.0-0.4); Eosinophils Percent Auto 2.4 % (0-4); Hemoglobin 13.2 g/dl (12.0-16.0); Imm Gran Abs Auto 0.04 X10*3/uL (0.00-0.03); Imm Gran Pct Auto 0.6 % (0.0-0.4); Lymphocytes Absolute Auto 2.4 X10*3/uL (1.2-4.9); Lymphocytes Percent Auto 38.8 % (20-40); Mean Corpuscular Volume 93.9 fL (80.0-98.0); Mean Platelet Volume 9.8 fL (9.4-12.3); Monocytes Absolute Auto 0.4 X10*3/uL (0.1-1.2); Monocytes Percent Auto 6.2 % (2-11); Neutrophils Absolute Auto 3.3 x10*3/uL (2.0-8.3); Neutrophils Percent Auto 51.7 % (45-73); Platelet Count 236 X10*3/uL (160-400); Red Blood Count 4.26 X10*6/uL (4.20-5.50); Red Cell Distribution Width 11.6 % (11.0-16.0); White Blood Count 6.3 X10*3/uL (4.8-10.8)
[2023-07-28 18:45] LABS: Alanine Aminotransferase 15 U/L (0-31); Albumin Level 4.2 g/dL (3.5-5.0); Alkaline Phosphatase 51 U/L (39-117); Anion Gap 11 (12-20); Aspartate Amino Transferase 21 U/L (5-31); Bilirubin Total 0.4 mg/dL (0.0-1.0); Blood Urea Nitrogen 9 mg/dL (9-16); Calcium 9.2 mg/dL (8.4-10.2); Carbon Dioxide 26 mmol/L (22-29); Chloride 109 mmol/L (96-108); Creatinine Clr Calc Pharmacy 85.1; Estimated Glomerular Filt Rate > 60; Glucose Random 103 mg/dL (60-115); Potassium 4.1 mmol/L (3.3-5.1); Sodium 142 mmol/L (135-145); Total Protein 7.6 g/dL (6.5-8.0)
[2023-07-28 18:56] LABS: Thyroid Stimulating Hormone 1.79 uIU/mL (0.32-4.0)
[2023-07-28 21:52] VITALS: BP 125/64; PULSE 56; RESP 20; TEMP 36.8; O2SAT 99
[2023-07-29] MEDS: Fluorescein Sodium STRIP 1 STRIP EYE-BOTH (00:17)
[2023-07-29] MEDS: Tetracaine HCl 0.5% Oph Sol 5 ML DROPS 3 DROP EYE-BOTH (00:17)
[2023-07-29 00:18] VITALS: BP 121/78; PULSE 56; RESP 16; TEMP 36.9; O2SAT 98
== END 2023-07-29 00:30 | disposition home or self-care (01) ==
PROVIDERS: Physician Assistant; Emergency Provider Emergency Medicine; PCP Internal Medicine
DX: H53.149 Visual discomfort, unspecified (principal); H16.9 Unspecified keratitis; R94.6 Abnormal results of thyroid function studies
CPT/HCPCS: 36415; 70450; 80053; 84443; 85025; 99282; 99284